=== PATIENT | male | born 1985 | race Caucasian/White ===

== ENCOUNTER 2024-12-01 19:46 | Emergency (ER) | payer BC ==
[~2024-12-01] VITALS: Ht 172.7 cm; Wt 88.0 kg
[2024-12-01] MEDS ORDERED: FAMOTIDINE/PF INJ 20 MG/2 ML VIAL IV ONE (20:18)
[2024-12-01] MEDS: IV NS 0.9% 1,000 ML BAG IV ONE (20:30)
[2024-12-01] MEDS: FAMOTIDINE/PF INJ 20 MG/2 ML VIAL IV ONE (20:34)
[2024-12-01] MEDS ORDERED: PRED50TA PO (21:10)
[2024-12-01 22:37] VITALS: BP 131/86; TEMP 98.4; O2SAT 96
== END 2024-12-01 22:37 | disposition home or self-care (01) ==
LOC: ER 19:53
DX: T78.1XXA Other adverse food reactions, not elsewhere classified, initial encounter (principal); Z79.52 Long term (current) use of systemic steroids; Z86.19 Personal history of other infectious and parasitic diseases; Z91.013 Allergy to seafood; X58.XXXA Exposure to other specified factors, initial encounter
CPT/HCPCS: 99284; 96374; 96375; 96361; J2919; J1200; J1308; J7030